=== PATIENT | female | born 1990 | race Caucasian/White ===

== ENCOUNTER 2018-06-04 12:50 | Inpatient (IN) | payer BC ==
[~2018-06-04 12:50] MED LIST: Bupivacaine 0.25% HCL 30 ML VIAL ONE; Lidocaine 2% MPF 10 ML AMP (For Epidural Use) ONE
[2018-06-04 22:04] VITALS: BMI 38.4
[2018-06-04] MEDS: Lactated Ringer's 1,000 ML IV SCH (22:37)
[2018-06-04] MEDS ORDERED: Carboprost 250 MCG/ML AMP IM PRN (22:51)
[2018-06-04] MEDS ORDERED: HYDROcodone/Acetaminophen 5/325 mg Tablet PO PRN (22:51)
[2018-06-04] MEDS ORDERED: Promethazine HCl 25 MG/ML VIAL IM PRN (22:51)
[2018-06-04] MEDS ORDERED: Acetaminophen 500 MG TAB PO PRN (22:51)
[2018-06-04] MEDS ORDERED: Diphenoxylate HCl/Atropine Tablet PO PRN (22:51)
[2018-06-04] MEDS ORDERED: Ibuprofen 800 MG TAB PO PRN (22:51)
[2018-06-04] MEDS ORDERED: Misoprostol 200 MCG TAB PR PRN (22:51)
[2018-06-04] MEDS ORDERED: Lidocaine 1% (PF) 30 ML VIAL SC PRN (22:51)
[2018-06-04] MEDS ORDERED: Butorphanol Tartrate 1 MG/ML VIAL SLOW IVP PRN (22:51)
[2018-06-04] MEDS ORDERED: Methylergonovine 0.2 MG/ML VIAL IM PRN (22:51)
[2018-06-04] MEDS ORDERED: Zolpidem Tartrate 5 MG TAB PO PRN (22:51)
[2018-06-04] MEDS ORDERED: Ondansetron PF 4 MG/2 ML Vial IVP PRN (22:51)
[2018-06-04 23:16] LABS: Hemoglobin 11.3 g/dL (12.0-16.0); Mean Corpuscular HGB CONC 32.8 g/dL (32.0-36.0); Mean Corpuscular Hemoglobin 26.3 pg (27.0-31.0); Mean Corpuscular Volume 80.1 fL (78.0-98.0); Mean Platelet Volume 9.4 fL (7.4-10.4); Platelet Count 200 thou/uL (130-400); White Blood Cell (WBC) Count 13.9 thou/uL (4.8-10.8)
[2018-06-04 23:43] LABS: HBSAg Index 0.34 S/CO (0-0.99); Hep B Surf Ag Non-Reactive S/CO (NonReactive); Syphilis Antibody Nonreactive (Nonreactive); Syphilis Antibody Index 0.09 S/CO (<1.00 Non-Reactive)
[2018-06-05] MEDS ORDERED: NS w/ Oxytocin 10 units 500 ML IV SCH (03:00)
[2018-06-05] MEDS ORDERED: Fentanyl 4 mcg/Bup 0.1% Cadd 100 ML ONE ×2 (06:02→12:41)
[2018-06-05] MEDS: Lactated Ringer's 1,000 ML IV SCH ×3 (06:13→12:39)
[2018-06-05] MEDS ORDERED: Lidocaine 1.5%/Epinephrine 1:200,000 5 ML AMPUL IJ ONE (06:20)
[2018-06-05] MEDS ORDERED: ePHEDrine/0.9% NaCl/PF SYRINGE 50 mg/10 ml SLOW IVP PRN (06:35)
[2018-06-05] MEDS ORDERED: Ondansetron PF 4 MG/2 ML Vial IVP PRN ×2 (06:35→20:55)
[2018-06-05] MEDS ORDERED: Acetaminophen 325 MG TAB PO PRN (06:35)
[2018-06-05] MEDS ORDERED: Eucerin (Mineral Oil/Petrolatum,White) 30 gm Jar TOP PRN (06:35)
[2018-06-05] MEDS ORDERED: diphenhydrAMINE 50 MG/ML VIAL IVP PRN (06:35)
[2018-06-05] MEDS ORDERED: Lactated Ringer's 500 ML IV PRN (06:35)
[2018-06-05] MEDS ORDERED: Naloxone HCl 0.4 mg/ml Vial IVP PRN ×2 (06:35)
[2018-06-05] MEDS ORDERED: Promethazine HCl 25 MG/ML VIAL IM PRN (06:35)
[2018-06-05] MEDS ORDERED: Fentanyl 4 mcg/Bupivacaine 0.1% Cassette 100 ML EPIDURAL SCH (06:45)
[2018-06-05] MEDS ORDERED: Communication Order-Pharmacy FS SCH (06:45)
--- NOTE | 2018-06-05 07:53 | PDOC.LDHP ---
Labor and Delivery H&P Chief complaint: scheduled induction HPI: 28yo at 38w0d by LMP for IOL 2/2 IUGR. No complaints, had dilapan x 5 overnight, SROM [address] Current gestational age (weeks): 38 Due date: 06/19/18 Dating criteria: last menstrual period Grav: 1 Para: 0 Current complications: IUGR (EFW 3%ile, normal UA dopplers and BPPs, neg torch titers) Abnormal US findings: Yes (IUGR) Past Medical History: depression Current medications: pre- vitamins, other (fluoxetine 20mg) Previous surgical history: none Allergies/Adverse Reactions: Allergies Allergy/AdvReac Type Severity Reaction Status Date / Time No Known Allergies Allergy Unverified 06/04/18 22:08 Social history: none - Physical Exam Vital signs reviewed and normal: yes General: NAD Heart: RRR Lungs: CTAB Abdomen: gravid Extremeties: no edema FHT: category 1 [place] contractions every: 3min - Vaginal Exam cm dilated: 4 Effacement: 75% Station: -2 - OB Labs Blood type: AB RH: positive Antibody Screen: negative HIV: negative RPR: negative HEPSAg: negative 1 hour GCT: positive 3 hour GTT: negative GBS: negative Urine drug screen: negative Rubella: immune - Assessment L&D Assessment: medically indicated induction - Plan Plan: admit to L&D, labor augmentation if indicated, informed consent obtained, anesthesia consult for pain management
--- NOTE | 2018-06-05 13:11 | PDOC.LDPN ---
Labor & Delivery Progress Note - Subjective Subjective: comfortable - Objective Vital signs reviewed and normal: yes General: NAD Uterine fundus: non tender Dilation: 8 Effacement: 90% Station: 0 FHT: category 2 (mod btbv, +accel, occ late decels, now resolved with positioning and O2) [place] contractions every: 3min Resuscitative measures: maternal oxygen, maternal IV fluids, maternal position change -: Pitocin recently restarted after late decels. Cont pitocin as tolerated. In active labor. Elevated BPs noted, pt was laying on cuff, will cont to monitor. No sx PIH.
[2018-06-05] MEDS: NS / Oxytocin 40 units/1000ml 1,000 ML IV PRN ×2 (16:00→17:20)
--- NOTE | 2018-06-05 16:14 | PDOC.OPDEL ---
OB Operative/Delivery Note Delivery Dr/Surgeon: Marylin Assist: n/a Pre-Delivery Diagnosis: medically indicated induction (IUGR) Procedure/Post Delivery Dx: spontaneous vaginal delivery Weeks gestation: 38 Anesthesia: epidural - Findings A Sex: female - 1 min: 9 - 5 min: 9 - Additional Findings/Plan Placenta delivered: spontaneous Repaired Obstetrical Laceration: left labial Estimated blood loss: 400cc qbl pending Compilations/Other Findings: NC x 1, body cord x 1, delivered through. Placenta sent to path. Post delivery plan: routine recovery
[2018-06-05] MEDS ORDERED: NS / Oxytocin 40 units/1000ml 1,000 ML IV SCH (20:55)
[2018-06-05] MEDS ORDERED: Bisacodyl 10 MG SUPP PR PRN (20:55)
[2018-06-05] MEDS ORDERED: Benzocaine/Menthol 20-0.5% 60 ML CAN TOP PRN (20:55)
[2018-06-05] MEDS ORDERED: Preparation H Ointment 28 GM TUBE PR PRN (20:55)
[2018-06-05] MEDS ORDERED: diphenhydrAMINE 25 MG CAP PO PRN (20:55)
[2018-06-05] MEDS ORDERED: Milk Of Magnesia 30 ML UDCUP PO PRN (20:55)
[2018-06-05] MEDS ORDERED: Lanolin Ointment 7 GM TUBE TOP PRN (20:55)
[2018-06-05] MEDS ORDERED: HYDROcodone/Acetaminophen 5/325 mg Tablet PO PRN ×2 (20:55)
[2018-06-05] MEDS: Docusate Calcium (SURFAK) 240 MG CAP PO SCH (22:35)
[2018-06-05] MEDS: Ibuprofen 800 MG TAB PO SCH (22:35)
[2018-06-06] MEDS: Ibuprofen 800 MG TAB PO SCH ×3 (05:47→21:08)
[2018-06-06] MEDS: Prenatal Vitamin 1 TAB PO SCH (08:54)
[2018-06-06] MEDS: Docusate Calcium (SURFAK) 240 MG CAP PO SCH ×2 (08:54→21:08)
[2018-06-06] MEDS: Ferrous Sulfate 325 MG TAB PO SCH ×2 (08:55→18:27)
[2018-06-06] MEDS ORDERED: Adacel (T-DAP) 0.5 ML SYRINGE IM ONE (09:00)
--- NOTE | 2018-06-06 09:13 | PDOC.PP ---
Post Progress Note Post Day #: 1 Subjective: doing well, nursing, min lochia, min pain PO intake tolerated: yes Flatus: yes Ambulation: yes Vital Signs (12 hours) Temp Pulse Resp BP Pulse Ox 06/06/18 08:13 97.9 F 75 20 109/54 L 99 06/06/18 05:45 98.1 F 85 18 113/60 06/06/18 01:13 98.3 F 92 18 99/62 92 L 06/05/18 21:45 98.6 F 104 H 18 126/76 98 Weight Weight 210 lb - Physical Examination General: NAD Respiratory: non-labored breathing Abdominal: no distention Fundus firm & at: below umb Skin: no rash Neurological: no gross focal deficits Psychiatric: A&Ox3, normal affect Result Diagrams: 06/04/18 22:56 Additional Labs: Post Labs Blood Type AB POSITIVE 06/04/18 22:57 Hep Bs Antigen Non-Reactive S/CO (NonReactive) 06/04/18 22:56 - Assessment/Plan PPD1 doing well, continue PP care.
[2018-06-07] MEDS: Ibuprofen 800 MG TAB PO SCH (06:07)
--- NOTE | 2018-06-07 07:52 | PDOC.PP ---
Post Progress Note Post Day #: 2 PO intake tolerated: yes Flatus: yes Ambulation: yes Vital Signs (12 hours) Temp Pulse Resp BP Pulse Ox 06/07/18 03:40 98.4 F 95 18 140/81 06/06/18 20:20 98.3 F 101 H 16 118/64 100 Weight Weight 210 lb - Physical Examination General: NAD Respiratory: non-labored breathing Abdominal: no distention, appropriately TTP Fundus firm & at: umb-2 Skin: no rash Neurological: no gross focal deficits Psychiatric: normal affect Result Diagrams: 06/04/18 22:56 Additional Labs: Post Labs Blood Type AB POSITIVE 06/04/18 22:57 Hep Bs Antigen Non-Reactive S/CO (NonReactive) 06/04/18 22:56 - Assessment/Plan PPD2 s/p TSVD VSSAF Doing well lochia < menses Rh pos RImm DC home FU 6w
[2018-06-07 08:07] VITALS: BP 130/74; TEMP 98.2
[2018-06-07] MEDS: Prenatal Vitamin 1 TAB PO SCH (08:20)
[2018-06-07] MEDS: Docusate Calcium (SURFAK) 240 MG CAP PO SCH (08:20)
[2018-06-07] MEDS: Ferrous Sulfate 325 MG TAB PO SCH (08:21)
== END 2018-06-07 10:55 | disposition home or self-care (01) | DRG 807 ==
LOC: L&D 21:11 → 3SE 06-05 21:48 → EDSTATUS 06-19 12:49
PROVIDERS: ADMIT Student in an Organized Health Care Education/Training Program; ATTEND Student in an Organized Health Care Education/Training Program
PROC: 10E0XZZ Delivery of Products of Conception, External Approach (ICD-10-PCS; principal; 2018-06-04)
PROC: 0UQMXZZ Repair Vulva, External Approach (ICD-10-PCS; 2018-06-04)
DX: O36.5930 Maternal care for other known or suspected poor fetal growth, third trimester, not applicable or unspecified (principal); Z37.0 Single live birth; O99.344 Other mental disorders complicating childbirth; F32.9 Major depressive disorder, single episode, unspecified; O70.0 First degree perineal laceration during delivery; O69.81X0 Labor and delivery complicated by cord around neck, without compression, not applicable or unspecified; Z3A.38 38 weeks gestation of pregnancy
CPT/HCPCS: 36415; 51702; 85027; 86780; 86850; 86900; 86901; 87340; 88307; J2001; J2405; J3490; S0020